=== PATIENT | female | born 1955 | race Caucasian/White ===

== ENCOUNTER 2017-02-12 20:47 | Emergency (ER) | payer MEDICARE, OTHER ==
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
[2017-02-12] MEDS: 0.9 % SODIUM CHLORIDE 500 ML IV ONE ×2 (21:24→23:55)
[2017-02-12 21:29] LABS: BASOPHILS % 0.8 (0.0-1.5); MEAN CORPUSCULAR HEMOGLOBIN 30.7 pg (28.0-34.0); MEAN CORPUSCULAR VOLUME 92.5 fl (80.0-100.0); MONOCYTES % 4.1 % (0.0-11.0); NEUTROPHILS # 8.8 # k/uL (1.4-7.7)
[2017-02-12] MEDS ORDERED: LORazepam 2 MG/ML VIAL IVP ONE ×2 (21:34→22:36)
[2017-02-12 21:43] LABS: eGFR (African) > 60; eGFR (Non-African) > 60
[2017-02-12] MEDS ORDERED: 0.9 % SODIUM CHLORIDE 500 ML IV ONE (22:06)
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
[2017-02-12 23:53] VITALS: BP 122/65
[2017-02-13 05:51] LABS: APPEARANCE,URINE CLOUDY (CLEAR); COLOR,URINE YELLOW (YELLOW); OCCULT BLOOD,URINE TRACE-INTACT (NEGATIVE); PH URINE 8.5 (5.0 - 8.0); UROBILINOGEN URINE 0.2 Eu (0.2-1.0)
== END 2017-02-12 23:40 | disposition home or self-care (01) ==
LOC: ED 20:47
DX: R42 Dizziness and giddiness (principal); F41.9 Anxiety disorder, unspecified
CPT/HCPCS: 70450; 80053; 83880; 85025; J2060; J7060; 81002; 87086; 96361; 96374; 99283